=== PATIENT | male | born 1995 | race Caucasian/White ===

== ENCOUNTER 2016-12-14 13:36 | Inpatient (IN) | payer OTHER ==
[~2016-12-14] VITALS: Ht 175.3 cm; Wt 84.0 kg
[~2016-12-14 13:36] MED LIST: ALLEGRA60 MG PO; ATARAX10 MG PO; BENADRYL A12.5 MG/5 PO; CHILDREN'S CHE1 EACH PO; CHILDREN'S MOT120 M2 PO; CLARITIN10 MG PO; CLONAZEPAM0.5 MG PO; DEPAKENE250 MG/5 M PO; DILANTIN INFATA50 MG PO; GUANFACINE HCL1 MG PO; IBUPROFEN100 MG/5 M PO; LAMICTAL ODT25 MG PO; LORTAB 10 MG-3473 ML PO; NOHOMEMEDS; QUETIAPINE FUMA25 MG PO; TENEX1 MG PO; VALPROIC A250 MG/5 M PO; VIMPAT10 MG/1 ML PO; ZOLOFT20 MG/ML PO; ZOLOFT50 MG PO
[2016-12-14 15:30] LABS: EOSINOPHIL (%) 0.5 % (0-5); HEMATOCRIT 45.2 % (38.0-50.0); IMMATURE GRANULOCYTE (%) 0.2 % (0.0-0.7); IMMATURE GRANULOCYTE COUNT 0.2 K/uL; LYMPHOCYTE COUNT 1.8 K/uL (1.0-2.8); MCH 31.6 PG (29.0-34.0); MCHC 34.1 G/DL (30.0-36.0); MCV 92.6 FL (86-99); MEAN PLAT.VOLUME 9.4 uM^3 (9.0-12.4); MONOCYTE (%) 11.5 % (3-12); NEUTROPHIL (%) 67.7 % (45-76); PLATELET COUNT 227 K/uL (156-360); RBC DIS.WIDTH-CV 13.1 % (11.8-14.6); RBC DIS.WIDTH-SD 43.2 % (39-53); RED BLOOD COUNT 4.88 M/uL (4.00-5.50); WHITE BLOOD COUNT 8.9 K/uL (4.1-10.2)
[2016-12-14 15:38] LABS: CHLORIDE 102 mEq/L (99-109); SODIUM 140 mEq/L (136-147)
[2016-12-14 15:40] LABS: GLUCOSE 95 mg/dL (70-99)
[2016-12-14 15:41] LABS: ANION GAP 11 MEQ/L (2-14)
[2016-12-14 15:42] LABS: TOTAL BILIRUBIN 0.4 mg/dL (0.0-1.0)
[2016-12-14 15:44] LABS: ALKALINE PHOSPHATASE 47 IU/L (3-129); GFR ESTIMATE (CALCULATED) > 59 mL/min/
[2016-12-14 15:45] LABS: UREA NITROGEN (BUN) 18 mg/dL (9-23)
[2016-12-14] MEDS ORDERED: TENEX2 MG PO (17:57)
[2016-12-14] MEDS ORDERED: LAMICTAL ODT50 MG PO (17:59)
[2016-12-14] MEDS ORDERED: LAMICTAL ODT100 MG PO (18:00)
[2016-12-14] MEDS ORDERED: SERTRALINE20 MG/1 ML PO ×2 (18:01→18:03)
[2016-12-14] MEDS ORDERED: ZOLOFT20 MG/ML PO (18:01)
[2016-12-14] MEDS ORDERED: GUANFACINE HCL2 MG PO (18:02)
[2016-12-14] MEDS ORDERED: QUETIAPINE FUMA50 MG PO (18:03)
[2016-12-14] MEDS ORDERED: FISH OIL GUMMI1 EACH PO (18:04)
[2016-12-14] MEDS ORDERED: [UNRECOGNIZED DRUG - OTHER] PO (18:04)
[2016-12-14 18:55] VITALS: BP 128/58
[2016-12-15 07:49] VITALS: BP 141/80
[2016-12-15 15:18] VITALS: BP 137/65
[2016-12-16 07:36] VITALS: BP 140/73
[2016-12-16 15:25] VITALS: BP 123/72
[2016-12-17 07:47] VITALS: BP 111/60
[2016-12-17] MEDS ORDERED: Depakene PO (09:10)
== END 2016-12-17 11:29 | disposition home or self-care (01) | DRG 885 ==
LOC: EME 13:36 → 1WEST 16:58 → EDOF 16:58 → 1WEST 18:49
PROVIDERS: Emergency Medicine
DX: F31.9 Bipolar disorder, unspecified (principal); F84.0 Autistic disorder; F41.9 Anxiety disorder, unspecified; G40.909 Epilepsy, unspecified, not intractable, without status epilepticus; J45.909 Unspecified asthma, uncomplicated
CPT/HCPCS: 74020; 80053; 80164; 85025; 90837

== ENCOUNTER 2016-12-27 10:03 | Emergency (ER) | payer BC, OTHER ==
[~2016-12-27] VITALS: Ht 177.8 cm; Wt 83.6 kg
[~2016-12-27 10:03] MED LIST changes: +Depakene PO; +FISH OIL GUMMI1 EACH PO; +GUANFACINE HCL2 MG PO; +LAMICTAL ODT100 MG PO; +LAMICTAL ODT50 MG PO; +QUETIAPINE FUMA50 MG PO; +SERTRALINE20 MG/1 ML PO; +TENEX2 MG PO; +[UNRECOGNIZED DRUG - OTHER] PO
[2016-12-27 11:12] LABS: HEMATOCRIT 44.8 % (38.0-50.0); MCH 31.6 PG (29.0-34.0); MCHC 34.4 G/DL (30.0-36.0); MEAN PLAT.VOLUME 9.4 uM^3 (9.0-12.4); PLATELET COUNT 279 K/uL (156-360); RBC DIS.WIDTH-SD 42.8 % (39-53); RED BLOOD COUNT 4.87 M/uL (4.00-5.50); WHITE BLOOD COUNT 5.8 K/uL (4.1-10.2)
[2016-12-27 11:19] LABS: CHLORIDE 104 mEq/L (99-109); POTASSIUM 4.3 mEq/L (3.7-5.4); SODIUM 143 mEq/L (136-147)
[2016-12-27 11:21] LABS: GLUCOSE 106 mg/dL (70-99)
[2016-12-27 11:23] LABS: ANION GAP 12 MEQ/L (2-14); TOTAL BILIRUBIN 0.3 mg/dL (0.0-1.0)
[2016-12-27 11:25] LABS: ALKALINE PHOSPHATASE 52 IU/L (3-129); GFR ESTIMATE (CALCULATED) > 59 mL/min/
[2016-12-27 11:26] LABS: UREA NITROGEN (BUN) 20 mg/dL (9-23)
[2016-12-27 12:17] VITALS: BP 146/70
== END 2016-12-27 12:17 | disposition home or self-care (01) ==
LOC: EME 10:03
PROVIDERS: Emergency Medicine
DX: F84.0 Autistic disorder (principal); F91.9 Conduct disorder, unspecified; F31.9 Bipolar disorder, unspecified; G40.909 Epilepsy, unspecified, not intractable, without status epilepticus
CPT/HCPCS: 80053; 80164; 85027; 90839; 99281; 99285

== ENCOUNTER 2016-12-28 10:11 | Emergency (ER) | payer BC, OTHER ==
[~2016-12-28] VITALS: Ht 180.3 cm; Wt 83.1 kg
[2016-12-28 11:26] LABS: EOSINOPHIL COUNT 0.1 K/uL (0-0.3); HEMATOCRIT 44.9 % (38.0-50.0); MCH 31.4 PG (29.0-34.0); MCHC 34.1 G/DL (30.0-36.0); MCV 92.2 FL (86-99); MEAN PLAT.VOLUME 9.2 uM^3 (9.0-12.4); MONOCYTE (%) 12.2 % (3-12); MONOCYTE COUNT 0.6 K/uL (0-0.8); NEUTROPHIL (%) 47.3 % (45-76); NEUTROPHIL COUNT 2.4 K/uL (1.8-6.4); PLATELET COUNT 257 K/uL (156-360); RBC DIS.WIDTH-CV 13.1 % (11.8-14.6); RED BLOOD COUNT 4.87 M/uL (4.00-5.50)
[2016-12-28 11:37] LABS: CHLORIDE 104 mEq/L (99-109); POTASSIUM 4.3 mEq/L (3.7-5.4); SODIUM 141 mEq/L (136-147)
[2016-12-28 11:40] LABS: ANION GAP 8 MEQ/L (2-14)
[2016-12-28 11:41] LABS: GLUCOSE 76 mg/dL (70-99)
[2016-12-28 11:43] LABS: ALKALINE PHOSPHATASE 49 IU/L (3-129); GFR ESTIMATE (CALCULATED) > 59 mL/min/
[2016-12-28 11:44] LABS: TOTAL BILIRUBIN 0.4 mg/dL (0.0-1.0); UREA NITROGEN (BUN) 20 mg/dL (9-23)
[2016-12-28 13:40] VITALS: BP 000/000
[2016-12-29] MEDS ORDERED: VALPROIC A250 MG/5 M PO (14:05)
[2016-12-29] MEDS ORDERED: FISH OIL 1,0001 EAC7 PO (14:06)
== END 2016-12-28 13:49 | disposition home or self-care (01) ==
LOC: EME 10:11
PROVIDERS: Emergency Medicine
DX: F84.0 Autistic disorder (principal); F31.9 Bipolar disorder, unspecified; G40.909 Epilepsy, unspecified, not intractable, without status epilepticus
CPT/HCPCS: 80053; 80164; 85025; 90839; 99281; 99284

== ENCOUNTER 2016-12-29 09:54 | Observation (INO) | payer BC, OTHER ==
[~2016-12-29] VITALS: Ht 177.8 cm; Wt 81.3 kg
[2016-12-29 11:44] LABS: HEMATOCRIT 43.4 % (38.0-50.0); MCH 31.8 PG (29.0-34.0); MCHC 34.6 G/DL (30.0-36.0); MCV 91.9 FL (86-99); MEAN PLAT.VOLUME 9.3 uM^3 (9.0-12.4); PLATELET COUNT 244 K/uL (156-360); RBC DIS.WIDTH-CV 13.2 % (11.8-14.6); RBC DIS.WIDTH-SD 43.3 % (39-53); RED BLOOD COUNT 4.72 M/uL (4.00-5.50); WHITE BLOOD COUNT 6.1 K/uL (4.1-10.2)
[2016-12-29 11:54] LABS: CHLORIDE 104 mEq/L (99-109); POTASSIUM 4.2 mEq/L (3.7-5.4); SODIUM 140 mEq/L (136-147)
[2016-12-29 11:56] LABS: GLUCOSE 79 mg/dL (70-99)
[2016-12-29 11:57] LABS: ANION GAP 10 MEQ/L (2-14)
[2016-12-29 11:59] LABS: SERUM ETHYL ALCOHOL < 10 mg/dL
[2016-12-29 12:00] LABS: GFR ESTIMATE (CALCULATED) > 59 mL/min/
[2016-12-29 12:01] LABS: UREA NITROGEN (BUN) 22 mg/dL (9-23)
[2016-12-29] MEDS ORDERED: VALPROIC A250 MG/5 M PO (14:05)
[2016-12-29] MEDS ORDERED: FISH OIL 1,0001 EAC7 PO (14:06)
[2016-12-29 19:55] VITALS: BP 115/65
[2016-12-29 20:09] VITALS: BP 115/65
[2016-12-30 01:05] VITALS: BP 126/82
[2016-12-30 02:27] LABS: HEMATOCRIT 46.6 % (38.0-50.0); MCH 32.3 PG (29.0-34.0); MCHC 34.1 G/DL (30.0-36.0); MCV 94.7 FL (86-99); PLATELET COUNT 255 K/uL (156-360); RBC DIS.WIDTH-CV 13.4 % (11.8-14.6); RBC DIS.WIDTH-SD 46.2 % (39-53); RED BLOOD COUNT 4.92 M/uL (4.00-5.50); WHITE BLOOD COUNT 16.1 K/uL (4.1-10.2)
[2016-12-30 02:28] LABS: CHLORIDE 103 mEq/L (99-109); SODIUM 142 mEq/L (136-147)
[2016-12-30 02:31] LABS: ANION GAP 13 MEQ/L (2-14)
[2016-12-30 02:34] LABS: ALKALINE PHOSPHATASE 54 IU/L (3-129); GFR ESTIMATE (CALCULATED) > 59 mL/min/
[2016-12-30 02:35] LABS: UREA NITROGEN (BUN) 19 mg/dL (9-23)
[2016-12-30 02:36] LABS: GLUCOSE 117 mg/dL (70-99); TOTAL BILIRUBIN 0.6 mg/dL (0.0-1.0)
[2016-12-30 04:44] VITALS: BP 125/58
[2016-12-30 15:29] VITALS: BP 118/71
[2016-12-30] MEDS ORDERED: CLONIDINE HCL0.1 MG PO (17:54)
[2016-12-30] MEDS ORDERED: QUETIAPINE FUM200 MG PO (17:56)
[2016-12-30] MEDS ORDERED: LEVAQUIN750 MG PO (19:22)
[2016-12-30 22:15] VITALS: BP 107/78
[2016-12-31 07:49] VITALS: BP 131/58
== END 2016-12-31 10:21 ==
LOC: EME 09:54 → EDOF 14:34 → 3EAST 14:34
PROVIDERS: Internal Medicine
DX: G40.901 Epilepsy, unspecified, not intractable, with status epilepticus (principal); J18.9 Pneumonia, unspecified organism; F84.0 Autistic disorder; F91.8 Other conduct disorders; F31.9 Bipolar disorder, unspecified
CPT/HCPCS: 74176; 80048; 80053; 80164; 85027; 90839; 99281; 99285; G0378; G0480; J1953; J2060; J2405; J7050

== ENCOUNTER 2016-12-31 08:56 | Inpatient (IN) | payer OTHER ==
[~2016-12-31] VITALS: Ht 177.8 cm; Wt 80.5 kg
[~2016-12-31 08:56] MED LIST changes: +CLONIDINE HCL0.1 MG PO; +FISH OIL 1,0001 EAC7 PO; +LEVAQUIN750 MG PO; +QUETIAPINE FUM200 MG PO
[2016-12-31 11:12] VITALS: BP 132/70
[2016-12-31 11:38] VITALS: BP 132/70
[2017-01-01 15:10] VITALS: BP 138/68
[2017-01-02 07:22] VITALS: BP 135/60
[2017-01-02 15:34] VITALS: BP 152/102
[2017-01-02 18:57] VITALS: BP 114/85
[2017-01-03 07:58] VITALS: BP 108/71
[2017-01-03 15:56] VITALS: BP 124/74
[2017-01-04 07:44] VITALS: BP 121/57
[2017-01-05 15:22] VITALS: BP 131/84
[2017-01-06 07:26] VITALS: BP 140/67
[2017-01-06 15:37] VITALS: BP 135/72
[2017-01-07 07:50] VITALS: BP 120/52
[2017-01-07] MEDS ORDERED: PROPRANOLOL HCL10 MG PO (09:31)
[2017-01-07] MEDS ORDERED: CLONIDINE HCL0.1 MG PO (09:42)
[2017-01-07] MEDS ORDERED: QUETIAPINE FUM200 MG PO (09:42)
== END 2017-01-07 17:39 | disposition home or self-care (01) | DRG 885 ==
LOC: 1WEST 08:56
DX: F31.9 Bipolar disorder, unspecified (principal); F84.0 Autistic disorder; F79 Unspecified intellectual disabilities; F91.8 Other conduct disorders; J18.9 Pneumonia, unspecified organism; G40.909 Epilepsy, unspecified, not intractable, without status epilepticus

== ENCOUNTER 2017-02-07 10:08 | Emergency (ER) | payer BC, OTHER ==
[~2017-02-07] VITALS: Ht 177.8 cm; Wt 83.8 kg
[~2017-02-07 10:08] MED LIST changes: +PROPRANOLOL HCL10 MG PO
[2017-02-07 11:04] LABS: HEMATOCRIT 46.6 % (38.0-50.0); MCH 31.4 PG (29.0-34.0); MCHC 33.7 G/DL (30.0-36.0); MCV 93.2 FL (86-99); PLATELET COUNT 288 K/uL (156-360); RBC DIS.WIDTH-CV 12.4 % (11.8-14.6); RBC DIS.WIDTH-SD 42.7 % (39-53); WHITE BLOOD COUNT 6.9 K/uL (4.1-10.2)
[2017-02-07 11:15] LABS: CHLORIDE 101 mEq/L (99-109); POTASSIUM 4.1 mEq/L (3.7-5.4); SODIUM 139 mEq/L (136-147)
[2017-02-07 11:18] LABS: GLUCOSE 95 mg/dL (70-99)
[2017-02-07 11:19] LABS: ANION GAP 10 MEQ/L (2-14)
[2017-02-07 11:20] LABS: TOTAL BILIRUBIN 0.4 mg/dL (0.0-1.0)
[2017-02-07 11:21] LABS: ALKALINE PHOSPHATASE 48 IU/L (3-129); GFR ESTIMATE (CALCULATED) > 59 mL/min/
[2017-02-07 11:22] LABS: UREA NITROGEN (BUN) 18 mg/dL (9-23)
[2017-02-07 14:39] VITALS: BP 123/76
== END 2017-02-07 14:41 | disposition home or self-care (01) ==
LOC: EME 10:08
DX: K59.00 Constipation, unspecified (principal); F84.0 Autistic disorder; J45.909 Unspecified asthma, uncomplicated
CPT/HCPCS: 74000; 80053; 81003; 85027; 99281; 99284

== ENCOUNTER 2017-02-18 13:51 | Inpatient (IN) | payer OTHER ==
[~2017-02-18] VITALS: Ht 177.8 cm; Wt 83.1 kg
[2017-02-18] MEDS ORDERED: INDERAL20 MG PO (15:37)
[2017-02-18] MEDS ORDERED: SEROQUEL200 MG PO (15:40)
[2017-02-18] MEDS ORDERED: ATIVAN1 MG PO (15:42)
[2017-02-18 20:23] LABS: HEMATOCRIT 46.7 % (38.0-50.0); MCH 31.3 PG (29.0-34.0); MCHC 33.8 G/DL (30.0-36.0); MCV 92.7 FL (86-99); MEAN PLAT.VOLUME 9.3 uM^3 (9.0-12.4); PLATELET COUNT 311 K/uL (156-360); RBC DIS.WIDTH-CV 12.5 % (11.8-14.6); RBC DIS.WIDTH-SD 42.6 % (39-53); RED BLOOD COUNT 5.04 M/uL (4.00-5.50)
[2017-02-18] MEDS ORDERED: CHILDREN'S MOT120 M2 PO (20:36)
[2017-02-18 20:37] LABS: CHLORIDE 102 mEq/L (99-109); POTASSIUM 4.2 mEq/L (3.7-5.4); SODIUM 140 mEq/L (136-147)
[2017-02-18 20:39] LABS: GLUCOSE 99 mg/dL (70-99)
[2017-02-18 20:40] LABS: ANION GAP 12 MEQ/L (2-14)
[2017-02-18 20:42] LABS: SERUM ETHYL ALCOHOL < 10 mg/dL
[2017-02-18 20:43] LABS: GFR ESTIMATE (CALCULATED) > 59 mL/min/
[2017-02-18 20:45] LABS: UREA NITROGEN (BUN) 18 mg/dL (9-23)
[2017-02-18 20:46] LABS: SALICYLATE < 5.0 MG/DL (15-30)
[2017-02-18 21:40] VITALS: BP 170/68
[2017-02-18 21:42] VITALS: BP 170/68
[2017-02-19 07:56] VITALS: BP 147/69
[2017-02-19 15:41] VITALS: BP 151/78
[2017-02-19 17:34] LABS: HEMATOCRIT 50.3 % (38.0-50.0); MCHC 32.8 G/DL (30.0-36.0); MCV 94.5 FL (86-99); MEAN PLAT.VOLUME 9.2 uM^3 (9.0-12.4); PLATELET COUNT 347 K/uL (156-360); RBC DIS.WIDTH-CV 12.3 % (11.8-14.6); RBC DIS.WIDTH-SD 42.5 % (39-53); RED BLOOD COUNT 5.32 M/uL (4.00-5.50)
[2017-02-19 17:44] LABS: CHLORIDE 102 mEq/L (99-109); POTASSIUM 4.4 mEq/L (3.7-5.4); SODIUM 141 mEq/L (136-147)
[2017-02-19 17:46] LABS: GLUCOSE 119 mg/dL (70-99)
[2017-02-19 17:47] LABS: ANION GAP 17 MEQ/L (2-14)
[2017-02-19 17:48] LABS: TOTAL BILIRUBIN 0.4 mg/dL (0.0-1.0)
[2017-02-19 17:49] LABS: ALKALINE PHOSPHATASE 52 IU/L (3-129)
[2017-02-19 17:50] LABS: GFR ESTIMATE (CALCULATED) > 59 mL/min/
[2017-02-19 17:51] LABS: UREA NITROGEN (BUN) 17 mg/dL (9-23)
[2017-02-20 07:43] VITALS: BP 131/64
[2017-02-20 15:24] VITALS: BP 131/68
[2017-02-21 07:46] VITALS: BP 150/69
[2017-02-21 09:12] LABS: ANION GAP 6 MEQ/L (2-14); CHLORIDE 100 MEQ/L (99-109); GFR ESTIMATE (CALCULATED) > 59 mL/min/; GLUCOSE 96 mg/dL (70-99); SAMPLE HEMOLYSIS CHECK 0; SAMPLE ICTERIC CHECK 0; SAMPLE LIPEMIA CHECK 0; SODIUM 139 MEQ/L (136-147); UREA NITROGEN (BUN) 17 mg/dL (9-23)
[2017-02-21 11:49] VITALS: BP 126/55
[2017-02-21 15:29] VITALS: BP 107/55
[2017-02-22 07:52] VITALS: BP 129/63
[2017-02-22 15:22] VITALS: BP 112/60
[2017-02-23 07:59] VITALS: BP 109/66
[2017-02-23 15:53] VITALS: BP 109/60
[2017-02-24 07:54] VITALS: BP 142/72
[2017-02-24 14:54] VITALS: BP 141/68
[2017-02-25 07:25] VITALS: BP 149/56
[2017-02-25 14:45] VITALS: BP 137/78
[2017-02-25] MEDS ORDERED: RISPERDAL0.5 MG PO (18:02)
[2017-02-26] MEDS ORDERED: RISPERDAL0.5 MG PO (15:22)
== END 2017-02-25 18:15 | disposition home or self-care (01) | DRG 885 ==
LOC: EME 13:51 → EDOF 19:42 → 1WEST 19:42
PROVIDERS: Emergency Medicine; Hospitalist; Internal Medicine
DX: F31.9 Bipolar disorder, unspecified (principal); F84.0 Autistic disorder; E83.52 Hypercalcemia; G40.909 Epilepsy, unspecified, not intractable, without status epilepticus
CPT/HCPCS: 70450; 80048; 80053; 80164; 81003; 85027; 90837; 97165 GO; 99281; 99285; G0480

== ENCOUNTER 2017-02-26 10:41 | Inpatient (IN) | payer OTHER ==
[~2017-02-26] VITALS: Ht 180.3 cm; Wt 82.7 kg
[~2017-02-26 10:41] MED LIST changes: +ATIVAN1 MG PO; +INDERAL20 MG PO; +RISPERDAL0.5 MG PO; +SEROQUEL200 MG PO
[2017-02-26] MEDS ORDERED: RISPERDAL0.5 MG PO (15:22)
[2017-02-26 17:45] VITALS: BP 141/95
[2017-02-26 18:57] VITALS: BP 141/95
[2017-02-27 07:40] VITALS: BP 92/66
[2017-02-27 14:36] LABS: EOSINOPHIL (%) 2.5 % (0-5); EOSINOPHIL COUNT 0.1 K/uL (0-0.3); HEMATOCRIT 46.4 % (38.0-50.0); IMMATURE GRANULOCYTE (%) 0.4 % (0.0-0.7); INSTRUMENT ABS NEUTROPHIL CT 2.5 K/uL; LYMPHOCYTE COUNT 2.1 K/uL (1.0-2.8); MCH 31.4 PG (29.0-34.0); MCHC 33.6 G/DL (30.0-36.0); MCV 93.4 FL (86-99); MEAN PLAT.VOLUME 9.3 uM^3 (9.0-12.4); MONOCYTE (%) 10.1 % (3-12); MONOCYTE COUNT 0.5 K/uL (0-0.8); NEUTROPHIL (%) 47.1 % (45-76); NEUTROPHIL COUNT 2.5 K/uL (1.8-6.4); PLATELET COUNT 274 K/uL (156-360); RBC DIS.WIDTH-CV 12.5 % (11.8-14.6); RBC DIS.WIDTH-SD 42.8 % (39-53); RED BLOOD COUNT 4.97 M/uL (4.00-5.50); WHITE BLOOD COUNT 5.3 K/uL (4.1-10.2)
[2017-02-27 14:39] VITALS: BP 139/94
[2017-02-27 14:40] VITALS: BP 154/84
[2017-02-27 14:40] LABS: CHLORIDE 101 mEq/L (99-109); POTASSIUM 4.1 mEq/L (3.7-5.4); SODIUM 138 mEq/L (136-147)
[2017-02-27 14:42] LABS: GLUCOSE 96 mg/dL (70-99)
[2017-02-27 14:43] LABS: ANION GAP 13 MEQ/L (2-14)
[2017-02-27 14:46] LABS: GFR ESTIMATE (CALCULATED) > 59 mL/min/
[2017-02-27 14:47] LABS: UREA NITROGEN (BUN) 13 mg/dL (9-23)
== END 2017-02-27 14:23 | DRG 885 ==
LOC: EME 10:41 → EDOF 13:39 → 1WEST 13:39
PROVIDERS: Student in an Organized Health Care Education/Training Program
DX: F31.9 Bipolar disorder, unspecified (principal); F84.0 Autistic disorder; G40.909 Epilepsy, unspecified, not intractable, without status epilepticus
CPT/HCPCS: 70450; 80048; 80164; 85025; 90837; 97165 GO; 99281; 99284

== ENCOUNTER 2017-02-27 14:23 | Inpatient (IN) | payer BC, OTHER ==
[2017-02-27 15:00] VITALS: BP 144/76
[2017-02-27 15:32] VITALS: BP 144/76
[2017-02-27 19:33] VITALS: BP 115/54
[2017-02-28 00:02] VITALS: BP 107/51
[2017-02-28 04:10] VITALS: BP 102/55
[2017-02-28 07:30] VITALS: BP 122/58
[2017-02-28 11:13] VITALS: BP 114/57
[2017-02-28 15:34] VITALS: BP 111/57
== END 2017-02-28 21:30 | DRG 101 ==
LOC: 3EAST 14:23
DX: G40.409 Other generalized epilepsy and epileptic syndromes, not intractable, without status epilepticus (principal); F84.0 Autistic disorder; F31.9 Bipolar disorder, unspecified
CPT/HCPCS: 72125; J1650; J1953; J7050

== ENCOUNTER 2017-02-28 19:43 | Inpatient (IN) | payer OTHER ==
[~2017-02-28] VITALS: Ht 180.3 cm; Wt 81.8 kg
[2017-02-28 21:52] VITALS: BP 118/81
[2017-02-28 21:58] VITALS: BP 118/81
[2017-03-01 07:49] VITALS: BP 102/55
[2017-03-01 15:51] VITALS: BP 130/83
[2017-03-02 09:10] VITALS: BP 109/53
[2017-03-02 16:10] VITALS: BP 118/70
[2017-03-02 17:49] LABS: POINT-OF-CARE METER ID UU13113830
[2017-03-02 18:06] VITALS: BP 116/80; BP 148/63
[2017-03-02 18:07] VITALS: BP 143/60
[2017-03-03 07:49] VITALS: BP 129/71
[2017-03-03 15:59] VITALS: BP 119/75
[2017-03-04 08:09] VITALS: BP 115/76
[2017-03-04 15:58] VITALS: BP 105/59
[2017-03-05 08:34] VITALS: BP 121/65
[2017-03-05 13:26] LABS: ALKALINE PHOSPHATASE 40 IU/L (3-129); ANION GAP 6 MEQ/L (2-14); CHLORIDE 102 MEQ/L (99-109); GFR ESTIMATE (CALCULATED) > 59 mL/min/; GLUCOSE 81 mg/dL (70-99); POTASSIUM 4.5 MEQ/L (3.7-5.4); SAMPLE HEMOLYSIS CHECK 0; SAMPLE ICTERIC CHECK 0; SAMPLE LIPEMIA CHECK 0; SODIUM 140 MEQ/L (136-147); TOTAL BILIRUBIN 0.3 MG/DL (0.0-1.0); UREA NITROGEN (BUN) 13 mg/dL (9-23)
[2017-03-05 15:48] VITALS: BP 85/48
[2017-03-06 07:58] VITALS: BP 97/51
[2017-03-06 13:58] LABS: POINT-OF-CARE METER ID UU13113830
[2017-03-06 14:33] LABS: HEMATOCRIT 47.2 % (38.0-50.0); MCH 31.1 PG (29.0-34.0); MCHC 32.4 G/DL (30.0-36.0); MCV 95.9 FL (86-99); MEAN PLAT.VOLUME 9.2 uM^3 (9.0-12.4); PLATELET COUNT 286 K/uL (156-360); RBC DIS.WIDTH-CV 12.8 % (11.8-14.6); RBC DIS.WIDTH-SD 45.5 % (39-53); RED BLOOD COUNT 4.92 M/uL (4.00-5.50); WHITE BLOOD COUNT 5.4 K/uL (4.1-10.2)
[2017-03-06 14:51] LABS: ANION GAP 8 MEQ/L (2-14); CHLORIDE 101 MEQ/L (99-109); POTASSIUM 4.4 MEQ/L (3.7-5.4); SAMPLE HEMOLYSIS CHECK 0; SAMPLE ICTERIC CHECK 0; SAMPLE LIPEMIA CHECK 0; SODIUM 139 MEQ/L (136-147)
[2017-03-06 14:56] LABS: GFR ESTIMATE (CALCULATED) > 59 mL/min/; GLUCOSE 99 mg/dL (70-99); UREA NITROGEN (BUN) 13 mg/dL (9-23)
[2017-03-06 15:37] VITALS: BP 124/65
[2017-03-07 08:03] VITALS: BP 142/76
[2017-03-08 07:56] VITALS: BP 99/53
[2017-03-08 15:31] VITALS: BP 134/58
[2017-03-08 21:25] LABS: ANION GAP 9 MEQ/L (2-14); CHLORIDE 103 MEQ/L (99-109); SAMPLE HEMOLYSIS CHECK 0; SAMPLE ICTERIC CHECK 0; SAMPLE LIPEMIA CHECK 0; SODIUM 139 MEQ/L (136-147)
[2017-03-08 21:30] LABS: GFR ESTIMATE (CALCULATED) > 59 mL/min/; GLUCOSE 97 mg/dL (70-99); UREA NITROGEN (BUN) 15 mg/dL (9-23)
[2017-03-09 08:03] VITALS: BP 93/51
[2017-03-09 15:51] VITALS: BP 139/70
[2017-03-10 08:04] VITALS: BP 105/54
[2017-03-10 15:19] VITALS: BP 140/73
[2017-03-11 07:42] VITALS: BP 90/55
[2017-03-11 11:03] VITALS: BP 114/53
[2017-03-11 15:38] VITALS: BP 119/58
[2017-03-12 09:12] VITALS: BP 121/55
[2017-03-12 16:19] VITALS: BP 131/67
[2017-03-13 07:57] VITALS: BP 106/56
[2017-03-13 15:28] VITALS: BP 113/55
[2017-03-14 08:04] VITALS: BP 99/51
[2017-03-14 15:59] VITALS: BP 102/59
[2017-03-15 07:35] VITALS: BP 93/52
[2017-03-15 15:23] VITALS: BP 108/55
[2017-03-16 08:02] VITALS: BP 136/60
[2017-03-16 15:40] VITALS: BP 118/67
[2017-03-17 07:47] VITALS: BP 156/65
[2017-03-17] MEDS ORDERED: SEROQUEL200 MG PO (08:50)
[2017-03-17] MEDS ORDERED: LAMOTRIGINE200 MG PO (08:50)
[2017-03-17] MEDS ORDERED: VIMPAT10 MG/1 ML PO (08:50)
[2017-03-17] MEDS ORDERED: CHILDREN'S MOT120 M2 PO (08:50)
[2017-03-17] MEDS ORDERED: INDERAL20 MG PO (08:50)
[2017-03-17] MEDS ORDERED: CLONIDINE HCL0.1 MG PO (08:50)
[2017-03-17] MEDS ORDERED: SERTRALINE20 MG/1 ML PO (08:50)
[2017-03-17] MEDS ORDERED: QUETIAPINE FUM300 MG PO (08:50)
[2017-03-17] MEDS ORDERED: GUANFACINE HCL2 MG PO (08:50)
[2017-03-17] MEDS ORDERED: RISPERDAL0.5 MG PO (08:50)
[2017-03-17] MEDS ORDERED: VALPROIC A250 MG/5 M PO (08:50)
[2017-03-17] MEDS ORDERED: KLONOPIN0.5 M1 PO ×2 (10:45→18:41)
== END 2017-03-17 18:50 | disposition home or self-care (01) | DRG 884 ==
LOC: 1WEST 19:43
PROVIDERS: Hospitalist; Psychiatry & Neurology Psychiatry
DX: F84.0 Autistic disorder (principal); F31.9 Bipolar disorder, unspecified; G40.409 Other generalized epilepsy and epileptic syndromes, not intractable, without status epilepticus; Z91.81 History of falling
CPT/HCPCS: 80048; 80053; 82948; 83735; 85027; 93005; 97150 GO; 97165 GO; J2060

== ENCOUNTER 2018-07-11 11:39 | Inpatient (IN) | payer BC, OTHER ==
[~2018-07-11] VITALS: Ht 177.8 cm; Wt 78.3 kg
[~2018-07-11 11:39] MED LIST changes: +KLONOPIN0.5 M1 PO; +LAMOTRIGINE200 MG PO; +QUETIAPINE FUM300 MG PO
[2018-07-11 12:44] LABS: HEMATOCRIT 47.4 % (38.0-50.0); HEMOGLOBIN 15.8 G/DL (12.5-16.6); MCH 34.5 PG (29.0-34.0); MCHC 33.3 G/DL (30.0-36.0); MCV 103.5 FL (86-99); PLATELET COUNT 179 K/uL (156-360); RBC DIS.WIDTH-CV 12.7 % (11.8-14.6); RBC DIS.WIDTH-SD 49.1 % (39-53); RED BLOOD COUNT 4.58 M/uL (4.00-5.50); WHITE BLOOD COUNT 6.9 K/uL (4.1-10.2)
[2018-07-11 12:56] LABS: CHLORIDE 111 mEq/L (99-109); POTASSIUM 5.9 mEq/L (3.7-5.4); SODIUM 142 mEq/L (136-147)
[2018-07-11 12:57] LABS: GLUCOSE 74 mg/dL (70-99)
[2018-07-11 13:01] LABS: GFR ESTIMATE (CALCULATED) > 59 mL/min/ (58.99-99999)
[2018-07-11 13:02] LABS: UREA NITROGEN (BUN) 11 mg/dL (9-23)
[2018-07-11] MEDS ORDERED: AMANTADINE100 M1 PO ×2 (14:53→14:54)
[2018-07-11] MEDS ORDERED: LEVO-T100 MCG PO (14:54)
[2018-07-11] MEDS ORDERED: SELSUN BLUE MO207 ML TP (14:55)
[2018-07-11] MEDS ORDERED: ZYPREXA5 MG PO (14:55)
[2018-07-11] MEDS ORDERED: VALPROIC A250 MG/5 M PO (14:56)
[2018-07-11] MEDS ORDERED: BENZOYL PEROXID60 G4 TP (14:57)
[2018-07-11] MEDS ORDERED: PANOXYL156 GM TP (14:58)
[2018-07-11] MEDS ORDERED: LAMICTAL25 MG PO (14:58)
[2018-07-11] MEDS ORDERED: OCEAN NASAL 0.645 ML BOTH NARES (15:00)
[2018-07-11] MEDS ORDERED: LAMICTAL100 MG PO (15:00)
[2018-07-11] MEDS ORDERED: TOPIRAMATE25 MG PO (15:01)
[2018-07-11] MEDS ORDERED: LEVOCARNITINE330 MG PO (15:01)
[2018-07-11] MEDS ORDERED: DEPAKENE250 MG/5 M PO (15:02)
[2018-07-11] MEDS ORDERED: TYLENOL REGULA325 MG PO (15:03)
[2018-07-11] MEDS ORDERED: VIMPAT10 MG/1 ML PO (15:03)
[2018-07-11] MEDS ORDERED: KLONOPIN1 MG PO (15:04)
[2018-07-11 16:27] LABS: ALBUMIN 4.7 G/DL (3.2-4.8); ALKALINE PHOSPHATASE 45 IU/L (3-129); ALT (GPT) 46 IU/L (3-49); AST (GOT) 69 IU/L (2-34); CARBAMAZEPINE (TEGRETOL) < 2.0 MCG/ML (4.0-12.0); DIRECT BILIRUBIN 0.1 mg/dL (0.0-0.3); TOTAL BILIRUBIN 0.4 MG/DL (0.0-1.0); TOTAL PROTEIN 7.7 G/DL (6.4-8.3); VALPROIC ACID (DEPAKOTE) 149.7 MCG/ML (50-100)
[2018-07-11 16:46] LABS: LIPASE 23 U/L (1.0-51.0)
[2018-07-11 17:26] VITALS: BP 165/58
[2018-07-11 17:54] LABS: APPEARANCE TURBID ((CLEAR)); BILIRUBIN NEGATIVE; BLOOD NEGATIVE; COLOR YELLOW ((YELLOW)); GLUCOSE (STRIP) NEGATIVE; KETONES NEGATIVE; LEUKOCYTES NEGATIVE; NITRITE NEGATIVE; PROTEIN (STRIP) NEGATIVE; SPECIFIC GRAVITY 1.018 (1.000-1.030); UROBILINOGEN 0.2 MG/DL (0.2-1.0)
[2018-07-11 18:14] LABS: BACTERIA 1+ /HPF; EPITHELIAL CELLS NONE SEEN /HPF; MUCUS NONE SEEN /LPF; RED BLOOD CELLS NONE SEEN /HPF (0-5); UCUL ADDED? NO; WHITE BLOOD CELLS RARE /HPF (0-5)
[2018-07-11 18:15] LABS: AMORPHOUS PHOSPHATE CRYSTALS 3+
[2018-07-11 23:58] VITALS: BP 107/54
[2018-07-12 06:10] VITALS: BP 127/61
[2018-07-12 06:51] LABS: HEMATOCRIT 43.2 % (38.0-50.0); MCH 33.4 PG (29.0-34.0); MCHC 31.9 G/DL (30.0-36.0); MCV 104.6 FL (86-99); PLATELET COUNT 162 K/uL (156-360); RBC DIS.WIDTH-CV 12.5 % (11.8-14.6); RBC DIS.WIDTH-SD 48.7 % (39-53); RED BLOOD COUNT 4.13 M/uL (4.00-5.50); WHITE BLOOD COUNT 6.5 K/uL (4.1-10.2)
[2018-07-12 07:08] LABS: CHLORIDE 109 MEQ/L (99-109); GFR ESTIMATE (CALCULATED) > 59 mL/min/ (58.99-99999); GLUCOSE 78 mg/dL (70-99); SODIUM 142 MEQ/L (136-147); UREA NITROGEN (BUN) 11 mg/dL (9-23)
[2018-07-12 07:26] LABS: HEMOGLOBIN 13.8 G/DL (12.5-16.6)
[2018-07-12 07:29] VITALS: BP 129/58
[2018-07-12 15:59] VITALS: BP 115/55
[2018-07-12 19:48] VITALS: BP 136/67
[2018-07-13 00:12] VITALS: BP 137/51
[2018-07-13 03:43] VITALS: BP 153/57
[2018-07-13 06:48] LABS: BASOPHIL (%) 0.5 % (0-1); EOSINOPHIL (%) 2.6 % (0-5); EOSINOPHIL COUNT 0.2 K/uL (0-0.3); HEMATOCRIT 41.8 % (38.0-50.0); HEMOGLOBIN 14.1 G/DL (12.5-16.6); IMMATURE GRANULOCYTE (%) 0.5 % (0.0-0.7); LYMPHOCYTE (%) 47.7 % (15-42); LYMPHOCYTE COUNT 3.1 K/uL (1.0-2.8); MCH 34.6 PG (29.0-34.0); MCHC 33.7 G/DL (30.0-36.0); MCV 102.5 FL (86-99); MONOCYTE (%) 12.4 % (3-12); MONOCYTE COUNT 0.8 K/uL (0-0.8); NEUTROPHIL (%) 36.3 % (45-76); NEUTROPHIL COUNT 2.3 K/uL (1.8-6.4); PLATELET COUNT 171 K/uL (156-360); RBC DIS.WIDTH-CV 12.3 % (11.8-14.6); RBC DIS.WIDTH-SD 46.6 % (39-53); RED BLOOD COUNT 4.08 M/uL (4.00-5.50); WHITE BLOOD COUNT 6.4 K/uL (4.1-10.2)
[2018-07-13 07:08] LABS: CHLORIDE 111 MEQ/L (99-109); CREATININE 0.9 MG/DL (0.6-1.3); GFR ESTIMATE (CALCULATED) > 59 mL/min/ (58.99-99999); GLUCOSE 90 mg/dL (70-99); POTASSIUM 3.9 MEQ/L (3.7-5.4); SODIUM 144 MEQ/L (136-147); UREA NITROGEN (BUN) 10 mg/dL (9-23)
[2018-07-13 08:31] VITALS: BP 169/74
[2018-07-13 16:01] VITALS: BP 119/66
[2018-07-13 19:37] VITALS: BP 145/60
[2018-07-13 23:59] VITALS: BP 103/58
[2018-07-14 03:17] VITALS: BP 123/64
[2018-07-14 07:40] VITALS: BP 120/56
[2018-07-14] MEDS ORDERED: LEVOCARNITINE330 MG PO (10:12)
[2018-07-14] MEDS ORDERED: LEVO-T100 MCG PO (10:12)
[2018-07-14] MEDS ORDERED: ZYPREXA5 MG PO (10:12)
[2018-07-14] MEDS ORDERED: KLONOPIN1 MG PO (10:12)
[2018-07-14] MEDS ORDERED: AMANTADINE100 M1 PO ×2 (10:12)
[2018-07-14] MEDS ORDERED: OCEAN NASAL 0.645 ML BOTH NARES (10:12)
[2018-07-14] MEDS ORDERED: VIMPAT50 MG PO (10:12)
[2018-07-14] MEDS ORDERED: TYLENOL REGULA325 MG PO (10:12)
[2018-07-14] MEDS ORDERED: SELSUN BLUE MO207 ML TP (10:12)
[2018-07-14] MEDS ORDERED: DIVALPROEX SOD125 MG PO (10:12)
[2018-07-14] MEDS ORDERED: TOPIRAMATE100 MG PO (10:12)
[2018-07-14] MEDS ORDERED: PANOXYL156 GM TP (10:12)
[2018-07-14] MEDS ORDERED: BENZOYL PEROXID60 G4 TP (10:12)
[2018-07-14] MEDS ORDERED: LAMICTAL25 MG PO (10:16)
[2018-07-14] MEDS ORDERED: LAMICTAL100 MG PO (10:16)
[2018-07-14 10:54] VITALS: BP 120/57
[2018-07-14] MEDS ORDERED: COGENTIN1 MG PO ×2 (10:58→11:03)
[2018-07-14] MEDS ORDERED: DEPAKENE250 MG/5 M PO (14:08)
[2018-07-14] MEDS ORDERED: VIMPAT10 MG/1 ML PO (14:08)
== END 2018-07-14 15:56 | disposition home or self-care (01) | DRG 948 ==
LOC: EME → EDBD 11:39 → 3EAST 15:55 → EDOF 15:55 → ENRESERV 15:59 → 3EAST 16:56
PROVIDERS: Emergency Medicine; Hospitalist
DX: R79.89 Other specified abnormal findings of blood chemistry (principal); T42.6X5A Adverse effect of other antiepileptic and sedative-hypnotic drugs, initial encounter; R11.2 Nausea with vomiting, unspecified; G40.909 Epilepsy, unspecified, not intractable, without status epilepticus; F79 Unspecified intellectual disabilities; F84.0 Autistic disorder; F31.9 Bipolar disorder, unspecified; K59.00 Constipation, unspecified
CPT/HCPCS: 36415; 70450; 71045; 80048; 80061; 80076; 80156; 80164; 80175 90; 81003; 82140; 83690; 84443; 85025; 85027; 99281; 99285; G9033; J1644; J1955; J7030